=== PATIENT | male | born 1975 | race Hispanic/Latino ===

== ENCOUNTER 2023-08-06 16:00 | Emergency (ER) | payer BC ==
[~2023-08-06] VITALS: Ht 167.6 cm; Wt 86.6 kg
[2023-08-06] MEDS: FAMOTIDINE 20MG VIAL IV ONE (20:04)
[2023-08-06] MEDS: METOCLOPRAMIDE 10 MG/2 ML VIAL IVP ONE (20:04)
[2023-08-06] MEDS: KETOROLAC 30MG VIAL (30MG/ML) IVP ONE (20:04)
[2023-08-06] MEDS: HALOPERIDOL INJ 5 MG/ML VIAL IM SCH (20:09)
[2023-08-06] MEDS: 0.9%NACL 1000ML 1,000 ML IV ONE (20:10)
[2023-08-06] MEDS ORDERED: PRED20TA3 PO (21:06)
[2023-08-06] MEDS ORDERED: IBUP-2070 PO (21:06)
[2023-08-06] MEDS ORDERED: FIORIT PO (21:06)
[2023-08-06 21:12] VITALS: BP 119/82; PULSE 58; RESP 17; O2SAT 98
== END 2023-08-06 21:15 | disposition home or self-care (01) ==
LOC: EDH 16:00
DX: R51.9 Headache, unspecified (principal); I10 Essential (primary) hypertension; Z79.52 Long term (current) use of systemic steroids
CPT/HCPCS: 99284; 96374; 96375; 96361; 96372; J3490; J7030; J1630; J1885; J2765